=== PATIENT | male | born 1955 | race African-American/Black ===

== ENCOUNTER 2022-12-06 19:30 | Inpatient (IN) | payer MEDICARE, MEDICAID ==
[~2022-12-06] VITALS: Ht 175.3 cm; Wt 80.3 kg
[~2022-12-06 19:30] MED LIST: ABAC1TAB14 PO
[2022-12-06 20:00] VITALS: BP 120/68; PULSE 84; RESP 18; TEMP 97
[2022-12-06] MEDS ORDERED: IPRATROPIUM/ALBUTEROL 0.5-3(2.5)MG/3ML NEB HHN PRN (21:30)
[2022-12-06] MEDS ORDERED: ONDANSETRON HCL 4MG TABLET PO PRN (21:30)
[2022-12-06] MEDS ORDERED: CLONIDINE 0.1MG TABLET PO PRN (21:30)
[2022-12-06] MEDS ORDERED: ACETAMINOPHEN WITH CODEINE 300/30MG TABLET PO PRN (22:00)
[2022-12-07 07:04] LABS: BASOPHILS % 0.5 % (0.0-2.0); EOSINOPHILS % 5.7 % (0.0-5.0); HEMATOCRIT. 44.1 % (42.0-52.0); HEMOGLOBIN. 14.9 g/dL (14.0-18.0); LYMPHOCYTES % 22.8 % (20.0-50.0); MEAN CORPUSCULAR HEMOGLOBIN 27.3 pg (28.0-32.0); MEAN CORPUSCULAR HGB CONC 33.9 g/dL (31.0-37.0); MEAN CORPUSCULAR VOLUME 80.5 fL (80.0-94.0); MONOCYTES % 11.1 % (2.0-8.0); NEUTROPHILS % 59.9 % (40.0-76.0); PLATELET 221 x1000/uL (130-400); RED BLOOD CELL COUNT 5.48 mill/uL (4.7-6.1); RED CELL DISTRIBUTION WIDTH 13.6 % (11.6-14.6); WHITE BLOOD COUNT 4.4 x1000/uL (4.5-11.0)
[2022-12-07 08:00] VITALS: BP 143/95; PULSE 96; RESP 20; TEMP 97.9
[2022-12-07 08:59] LABS: CHLORIDE 105 mEq/L (98-107); INDEX HEMOLYSI 1 (1-3); INDEX ICTERIC 1 (1-4); INDEX LIPEMIC 1 (1-3); POTASSIUM 3.7 mEq/L (3.5-5.1); SODIUM 136 mEq/L (136-145)
[2022-12-07] MEDS: BIKTARVY PO SCH (09:00)
[2022-12-07] MEDS: HYDROCHLOROTHIAZIDE 12.5MG CAPSULE PO SCH (09:00)
[2022-12-07 09:11] LABS: ALANINE AMINOTRANSFERASE 26 IU/L (13-61); ALBUMIN 3.4 g/dL (3.4-5.0); ASPARTATE AMINOTRANSFERASE 22 IU/L (15-37); BILIRUBIN TOTAL 0.5 mg/dL (0.1-1.0); CALCIUM 8.8 mg/dL (8.5-10.1); CARBON DIOXIDE 27 mEq/L (21-32); CREATININE 1.2 mg/dL (0.6-1.3); GLUCOSE 102 mg/dL (70-105); PROTEIN TOTAL 8.8 g/dL (6.0-8.3); UREA NITROGEN BLOOD 19 mg/dL (7-21)
[2022-12-07] MEDS: LOSARTAN 50 MG TABLET PO SCH (09:48)
[2022-12-07] MEDS: CLOPIDOGREL 75MG TABLET PO SCH (09:48)
[2022-12-07] MEDS: ASPIRIN 81MG TABLET PO SCH (09:49)
[2022-12-07] MEDS: LABETALOL HCL 100MG TABLET PO SCH ×2 (09:49→21:00)
[2022-12-07] MEDS: ENOXAPARIN 40MG/0.4ML SYR SUBCUT SCH (09:50)
[2022-12-07] MEDS ORDERED: [UNRECOGNIZED DRUG - OTHER] XX SCH (10:00)
[2022-12-07] MEDS ORDERED: NALOXONE HCL 0.4MG/ML VIAL IV PRN (10:00)
[2022-12-07] MEDS ORDERED: [UNRECOGNIZED DRUG - OTHER] PO (10:02)
[2022-12-07] MEDS ORDERED: HYDR12.54 PO (10:02)
[2022-12-07] MEDS ORDERED: LOSA50TA41 PO (10:02)
[2022-12-07] MEDS ORDERED: SULF1TAB44 PO (10:02)
[2022-12-07] MEDS ORDERED: LABE100T9 PO (10:02)
[2022-12-07] MEDS ORDERED: FINA5TAB11 PO (10:02)
[2022-12-07] MEDS ORDERED: DUTA1CPM4 PO (10:02)
[2022-12-07] MEDS ORDERED: ALFU10TA9 PO (10:02)
[2022-12-07] MEDS ORDERED: AZITHROMYCIN 500 MG TABLET PO SCH (11:15)
[2022-12-07] MEDS: SULFAMETHOXAZOLE/TRIMETHOPRIM 800/160MG TABLET PO SCH ×2 (11:20→21:00)
[2022-12-07 12:00] VITALS: BP 141/98; PULSE 78; RESP 20; TEMP 96.1
[2022-12-07] MEDS: DOCUSATE SODIUM 100MG CAPSULE PO SCH ×2 (16:00→17:00)
[2022-12-07] MEDS: SERTRALINE HCL 50MG TABLET PO SCH (16:00)
[2022-12-07] MEDS ORDERED: AZITHROMYCIN 600 MG TABLET PO NR (20:00)
[2022-12-07] MEDS: FAMOTIDINE 20MG TABLET PO SCH (21:00)
[2022-12-07] MEDS: ATORVASTATIN CALCIUM 40MG TABLET PO SCH (21:00)
[2022-12-08] MEDS ORDERED: *PATIENT'S OWN MEDICATION STORAGE XX SCH (09:00)
[2022-12-08] MEDS: CLOPIDOGREL 75MG TABLET PO SCH (09:37)
[2022-12-08] MEDS: DOCUSATE SODIUM 100MG CAPSULE PO SCH ×2 (09:37→17:00)
[2022-12-08] MEDS: LOSARTAN 50 MG TABLET PO SCH (09:37)
[2022-12-08] MEDS: SULFAMETHOXAZOLE/TRIMETHOPRIM 800/160MG TABLET PO SCH ×2 (09:37→21:00)
[2022-12-08] MEDS: ASPIRIN 81MG TABLET PO SCH (09:38)
[2022-12-08] MEDS: SERTRALINE HCL 50MG TABLET PO SCH (09:38)
[2022-12-08] MEDS: LABETALOL HCL 100MG TABLET PO SCH ×2 (09:38→21:00)
[2022-12-08] MEDS: BIKTARVY PO SCH (09:38)
[2022-12-08] MEDS: HYDROCHLOROTHIAZIDE 12.5MG CAPSULE PO SCH (09:38)
[2022-12-08] MEDS: ENOXAPARIN 40MG/0.4ML SYR SUBCUT SCH (09:40)
[2022-12-08 20:00] VITALS: BP 166/87; PULSE 78; RESP 18; TEMP 97.9
[2022-12-08] MEDS: ATORVASTATIN CALCIUM 40MG TABLET PO SCH (21:00)
[2022-12-08] MEDS: FAMOTIDINE 20MG TABLET PO SCH (21:00)
[2022-12-09 08:00] VITALS: BP 144/84; PULSE 81; RESP 19; TEMP 97.3
[2022-12-09] MEDS: [UNRECOGNIZED DRUG - OTHER] PO SCH ×2 (09:36→17:24)
[2022-12-09] MEDS: BIKTARVY PO SCH (09:37)
[2022-12-09] MEDS: HYDROCHLOROTHIAZIDE 12.5MG CAPSULE PO SCH (09:38)
[2022-12-09] MEDS: DOCUSATE SODIUM 100MG CAPSULE PO SCH ×2 (09:38→17:24)
[2022-12-09] MEDS: SULFAMETHOXAZOLE/TRIMETHOPRIM 800/160MG TABLET PO SCH ×2 (09:38→20:31)
[2022-12-09] MEDS: ASPIRIN 81MG TABLET PO SCH (09:38)
[2022-12-09] MEDS: LOSARTAN 50 MG TABLET PO SCH (09:38)
[2022-12-09] MEDS: LABETALOL HCL 100MG TABLET PO SCH ×2 (09:39→20:31)
[2022-12-09] MEDS: SERTRALINE HCL 50MG TABLET PO SCH (09:39)
[2022-12-09] MEDS: CLOPIDOGREL 75MG TABLET PO SCH (09:39)
[2022-12-09] MEDS: ENOXAPARIN 40MG/0.4ML SYR SUBCUT SCH (09:40)
[2022-12-09 20:00] VITALS: BP 130/80; PULSE 77; RESP 18; TEMP 97.4
[2022-12-09] MEDS: FAMOTIDINE 20MG TABLET PO SCH (20:31)
[2022-12-09] MEDS: ATORVASTATIN CALCIUM 40MG TABLET PO SCH (20:31)
[2022-12-10 08:00] VITALS: BP 129/88; PULSE 80; RESP 19; TEMP 97.4
[2022-12-10] MEDS: LOSARTAN 50 MG TABLET PO SCH (09:00)
[2022-12-10] MEDS: CLOPIDOGREL 75MG TABLET PO SCH (09:00)
[2022-12-10] MEDS: DOCUSATE SODIUM 100MG CAPSULE PO SCH ×2 (09:00→18:07)
[2022-12-10] MEDS: SULFAMETHOXAZOLE/TRIMETHOPRIM 800/160MG TABLET PO SCH ×2 (09:00→21:17)
[2022-12-10] MEDS: HYDROCHLOROTHIAZIDE 12.5MG CAPSULE PO SCH (09:00)
[2022-12-10] MEDS: LABETALOL HCL 100MG TABLET PO SCH ×2 (09:00→21:18)
[2022-12-10] MEDS: ASPIRIN 81MG TABLET PO SCH (09:00)
[2022-12-10] MEDS: [UNRECOGNIZED DRUG - OTHER] PO SCH ×2 (09:00→18:07)
[2022-12-10] MEDS: BIKTARVY PO SCH (09:00)
[2022-12-10] MEDS: ENOXAPARIN 40MG/0.4ML SYR SUBCUT SCH (09:00)
[2022-12-10] MEDS: SERTRALINE HCL 50MG TABLET PO SCH (09:00)
[2022-12-10 19:35] VITALS: PULSE 80; RESP 18
[2022-12-10] MEDS: ATORVASTATIN CALCIUM 40MG TABLET PO SCH (21:17)
[2022-12-10] MEDS: FAMOTIDINE 20MG TABLET PO SCH (21:18)
[2022-12-11 06:11] LABS: BASOPHILS % 0.5 % (0.0-2.0); EOSINOPHILS % 2.7 % (0.0-5.0); HEMATOCRIT. 40.8 % (42.0-52.0); HEMOGLOBIN. 13.8 g/dL (14.0-18.0); LYMPHOCYTES % 20.4 % (20.0-50.0); MEAN CORPUSCULAR HEMOGLOBIN 27.3 pg (28.0-32.0); MEAN CORPUSCULAR HGB CONC 33.7 g/dL (31.0-37.0); MEAN CORPUSCULAR VOLUME 80.9 fL (80.0-94.0); MEAN PLATELET VOLUME 8.7 fl (7.4-10.4); MONOCYTES % 12.6 % (2.0-8.0); NEUTROPHILS % 63.8 % (40.0-76.0); PLATELET 229 x1000/uL (130-400); RED BLOOD CELL COUNT 5.05 mill/uL (4.7-6.1); RED CELL DISTRIBUTION WIDTH 13.7 % (11.6-14.6); WHITE BLOOD COUNT 5.8 x1000/uL (4.5-11.0)
[2022-12-11 08:00] VITALS: BP 146/91; PULSE 74; RESP 20; TEMP 97.1
[2022-12-11] MEDS: DOCUSATE SODIUM 100MG CAPSULE PO SCH ×2 (08:29→18:26)
[2022-12-11] MEDS: CLOPIDOGREL 75MG TABLET PO SCH (08:29)
[2022-12-11] MEDS: ASPIRIN 81MG TABLET PO SCH (08:29)
[2022-12-11] MEDS: SERTRALINE HCL 50MG TABLET PO SCH (08:30)
[2022-12-11] MEDS: LOSARTAN 50 MG TABLET PO SCH (08:30)
[2022-12-11] MEDS: SULFAMETHOXAZOLE/TRIMETHOPRIM 800/160MG TABLET PO SCH ×2 (08:30→22:07)
[2022-12-11] MEDS: HYDROCHLOROTHIAZIDE 12.5MG CAPSULE PO SCH (08:35)
[2022-12-11] MEDS: ENOXAPARIN 40MG/0.4ML SYR SUBCUT SCH (08:35)
[2022-12-11] MEDS: LABETALOL HCL 100MG TABLET PO SCH ×2 (08:35→22:07)
[2022-12-11] MEDS: BIKTARVY PO SCH (08:36)
[2022-12-11] MEDS: [UNRECOGNIZED DRUG - OTHER] PO SCH ×2 (08:36→17:00)
[2022-12-11 08:57] LABS: CHLORIDE 104 mEq/L (98-107); INDEX HEMOLYSI 2 (1-3); INDEX ICTERIC 1 (1-4); INDEX LIPEMIC 1 (1-3); POTASSIUM 4.1 mEq/L (3.5-5.1); SODIUM 136 mEq/L (136-145)
[2022-12-11 09:08] LABS: ALANINE AMINOTRANSFERASE 37 IU/L (13-61); ALBUMIN 3.4 g/dL (3.4-5.0); ASPARTATE AMINOTRANSFERASE 39 IU/L (15-37); BILIRUBIN TOTAL 0.6 mg/dL (0.1-1.0); CALCIUM 8.5 mg/dL (8.5-10.1); CARBON DIOXIDE 25 mEq/L (21-32); CREATININE 1.6 mg/dL (0.6-1.3); GLUCOSE 105 mg/dL (70-105); PROTEIN TOTAL 8.8 g/dL (6.0-8.3); UREA NITROGEN BLOOD 26 mg/dL (7-21)
[2022-12-11] MEDS ORDERED: LACTULOSE 20G/30ML UDC PO NR (13:45)
[2022-12-11 20:00] VITALS: BP 156/102; PULSE 73; RESP 18; TEMP 97.9
[2022-12-11] MEDS ORDERED: LACTULOSE 20G/30ML UDC PO PRN (21:00)
[2022-12-11] MEDS: FAMOTIDINE 20MG TABLET PO SCH (22:07)
[2022-12-11] MEDS: ATORVASTATIN CALCIUM 40MG TABLET PO SCH (22:07)
[2022-12-12 08:05] VITALS: BP 137/65; PULSE 78; RESP 18; TEMP 97.9
[2022-12-12 08:11] LABS: POTASSIUM 3.9 mEq/L (3.5-5.1)
[2022-12-12 08:14] LABS: CALCIUM 8.8 mg/dL (8.5-10.1); CREATININE 1.6 mg/dL (0.6-1.3)
[2022-12-12] MEDS: CLOPIDOGREL 75MG TABLET PO SCH (10:05)
[2022-12-12] MEDS: LABETALOL HCL 100MG TABLET PO SCH ×2 (10:05→21:00)
[2022-12-12] MEDS: HYDROCHLOROTHIAZIDE 12.5MG CAPSULE PO SCH (10:06)
[2022-12-12] MEDS: DOCUSATE SODIUM 100MG CAPSULE PO SCH ×2 (10:06→17:13)
[2022-12-12] MEDS: SERTRALINE HCL 50MG TABLET PO SCH (10:06)
[2022-12-12] MEDS: ASPIRIN 81MG TABLET PO SCH (10:06)
[2022-12-12] MEDS: LOSARTAN 50 MG TABLET PO SCH (10:07)
[2022-12-12] MEDS: [UNRECOGNIZED DRUG - OTHER] PO SCH ×2 (10:08→17:14)
[2022-12-12] MEDS: BIKTARVY PO SCH (10:08)
[2022-12-12] MEDS: SULFAMETHOXAZOLE/TRIMETHOPRIM 800/160MG TABLET PO SCH ×2 (10:09→21:00)
[2022-12-12] MEDS: ENOXAPARIN 40MG/0.4ML SYR SUBCUT SCH (12:19)
[2022-12-12 20:00] VITALS: BP 126/77; PULSE 69; RESP 19; TEMP 98.2
[2022-12-12] MEDS: ATORVASTATIN CALCIUM 40MG TABLET PO SCH (21:00)
[2022-12-12] MEDS: FAMOTIDINE 20MG TABLET PO SCH (21:00)
[2022-12-13 06:46] LABS: BASOPHILS % 0.7 % (0.0-2.0); DIFFERENTIAL COMMENT 0; EOSINOPHILS % 3.4 % (0.0-5.0); HEMATOCRIT. 38.9 % (42.0-52.0); HEMOGLOBIN. 13.2 g/dL (14.0-18.0); LYMPHOCYTES % 21.5 % (20.0-50.0); MEAN CORPUSCULAR HEMOGLOBIN 26.9 pg (28.0-32.0); MEAN CORPUSCULAR HGB CONC 33.9 g/dL (31.0-37.0); MEAN CORPUSCULAR VOLUME 79.3 fL (80.0-94.0); MEAN PLATELET VOLUME 8.9 fl (7.4-10.4); MONOCYTES % 12.1 % (2.0-8.0); NEUTROPHILS % 62.3 % (40.0-76.0); PLATELET 241 x1000/uL (130-400); RED BLOOD CELL COUNT 4.91 mill/uL (4.7-6.1); RED CELL DISTRIBUTION WIDTH 13.7 % (11.6-14.6); WHITE BLOOD COUNT 5.6 x1000/uL (4.5-11.0)
[2022-12-13 08:00] VITALS: BP 119/82; PULSE 87; RESP 18; TEMP 97
[2022-12-13] MEDS: LOSARTAN 50 MG TABLET PO SCH (09:49)
[2022-12-13] MEDS: ASPIRIN 81MG TABLET PO SCH (09:49)
[2022-12-13] MEDS: CLOPIDOGREL 75MG TABLET PO SCH (09:50)
[2022-12-13] MEDS: DOCUSATE SODIUM 100MG CAPSULE PO SCH ×2 (09:50→16:04)
[2022-12-13] MEDS: HYDROCHLOROTHIAZIDE 12.5MG CAPSULE PO SCH (09:51)
[2022-12-13] MEDS: LABETALOL HCL 100MG TABLET PO SCH ×2 (09:51→21:27)
[2022-12-13] MEDS: ENOXAPARIN 40MG/0.4ML SYR SUBCUT SCH (09:52)
[2022-12-13] MEDS: BIKTARVY PO SCH (09:54)
[2022-12-13] MEDS: SERTRALINE HCL 50MG TABLET PO SCH (09:54)
[2022-12-13] MEDS: [UNRECOGNIZED DRUG - OTHER] PO SCH ×2 (09:55→16:04)
[2022-12-13] MEDS: SULFAMETHOXAZOLE/TRIMETHOPRIM 800/160MG TABLET PO SCH ×2 (09:55→21:26)
[2022-12-13 17:07] LABS: *HIV-1 RNA BY PCR 7620 copies/mL (.); *HIV1 RNA LOG10 3.882 (.)
[2022-12-13 20:00] VITALS: BP 151/96; PULSE 75; RESP 18; TEMP 96.9
[2022-12-13] MEDS: ATORVASTATIN CALCIUM 40MG TABLET PO SCH (21:26)
[2022-12-13] MEDS: FAMOTIDINE 20MG TABLET PO SCH (21:26)
[2022-12-14 08:00] VITALS: BP 138/84; PULSE 72; RESP 20; TEMP 97.3
[2022-12-14] MEDS: AZITHROMYCIN 600 MG TABLET PO SCH (08:35)
[2022-12-14] MEDS: SULFAMETHOXAZOLE/TRIMETHOPRIM 800/160MG TABLET PO SCH ×2 (08:35→21:14)
[2022-12-14] MEDS: ASPIRIN 81MG TABLET PO SCH (08:35)
[2022-12-14] MEDS: CLOPIDOGREL 75MG TABLET PO SCH (08:35)
[2022-12-14] MEDS: SERTRALINE HCL 50MG TABLET PO SCH (08:35)
[2022-12-14] MEDS: DOCUSATE SODIUM 100MG CAPSULE PO SCH (08:35)
[2022-12-14] MEDS: LOSARTAN 50 MG TABLET PO SCH (08:36)
[2022-12-14] MEDS: LABETALOL HCL 100MG TABLET PO SCH ×2 (08:36→21:00)
[2022-12-14] MEDS: HYDROCHLOROTHIAZIDE 12.5MG CAPSULE PO SCH (08:36)
[2022-12-14] MEDS: BIKTARVY PO SCH (08:37)
[2022-12-14] MEDS: [UNRECOGNIZED DRUG - OTHER] PO SCH (08:37)
[2022-12-14] MEDS: ENOXAPARIN 40MG/0.4ML SYR SUBCUT SCH (08:37)
[2022-12-14 20:00] VITALS: BP 106/73; PULSE 108; RESP 17; TEMP 96.6
[2022-12-14] MEDS: FAMOTIDINE 20MG TABLET PO SCH (21:13)
[2022-12-14] MEDS: ATORVASTATIN CALCIUM 40MG TABLET PO SCH (21:13)
[2022-12-15 08:00] VITALS: BP 130/80; PULSE 83; RESP 18; TEMP 97.7
[2022-12-15 08:10] LABS: BASOPHILS % 0.5 % (0.0-2.0); EOSINOPHILS % 3.2 % (0.0-5.0); HEMATOCRIT. 39.6 % (42.0-52.0); HEMOGLOBIN. 13.5 g/dL (14.0-18.0); LYMPHOCYTES % 21.6 % (20.0-50.0); MEAN CORPUSCULAR HEMOGLOBIN 27.2 pg (28.0-32.0); MEAN PLATELET VOLUME 8.9 fl (7.4-10.4); MONOCYTES % 12.9 % (2.0-8.0); NEUTROPHILS % 61.8 % (40.0-76.0); PLATELET 252 x1000/uL (130-400); RED BLOOD CELL COUNT 4.96 mill/uL (4.7-6.1); RED CELL DISTRIBUTION WIDTH 13.5 % (11.6-14.6); WHITE BLOOD COUNT 4.9 x1000/uL (4.5-11.0)
[2022-12-15] MEDS: [UNRECOGNIZED DRUG - OTHER] PO SCH ×2 (09:00→16:36)
[2022-12-15] MEDS: BIKTARVY PO SCH (09:00)
[2022-12-15] MEDS: ENOXAPARIN 40MG/0.4ML SYR SUBCUT SCH (09:00)
[2022-12-15] MEDS: LABETALOL HCL 100MG TABLET PO SCH ×2 (10:31→10:34)
[2022-12-15] MEDS: HYDROCHLOROTHIAZIDE 12.5MG CAPSULE PO SCH ×2 (10:31→10:35)
[2022-12-15] MEDS: SERTRALINE HCL 50MG TABLET PO SCH ×2 (10:32→10:33)
[2022-12-15] MEDS: ASPIRIN 81MG TABLET PO SCH ×2 (10:32→10:33)
[2022-12-15] MEDS: DOCUSATE SODIUM 100MG CAPSULE PO SCH ×3 (10:32→16:35)
[2022-12-15] MEDS: CLOPIDOGREL 75MG TABLET PO SCH ×2 (10:32→10:34)
[2022-12-15] MEDS: LOSARTAN 50 MG TABLET PO SCH (10:42)
[2022-12-15] MEDS: SULFAMETHOXAZOLE/TRIMETHOPRIM 800/160MG TABLET PO SCH ×2 (10:55→20:14)
[2022-12-15 20:00] VITALS: BP 117/66; PULSE 83; RESP 18; TEMP 97
[2022-12-15] MEDS: ATORVASTATIN CALCIUM 40MG TABLET PO SCH (20:12)
[2022-12-15] MEDS: FAMOTIDINE 20MG TABLET PO SCH (20:12)
[2022-12-16 08:00] VITALS: BP 127/82; PULSE 81; RESP 19; TEMP 96.7
[2022-12-16] MEDS: DOCUSATE SODIUM 100MG CAPSULE PO SCH ×2 (09:40→18:12)
[2022-12-16] MEDS: ASPIRIN 81MG TABLET PO SCH (09:40)
[2022-12-16] MEDS: ENOXAPARIN 40MG/0.4ML SYR SUBCUT SCH (09:40)
[2022-12-16] MEDS: HYDROCHLOROTHIAZIDE 12.5MG CAPSULE PO SCH (09:41)
[2022-12-16] MEDS: CLOPIDOGREL 75MG TABLET PO SCH (09:41)
[2022-12-16] MEDS: LABETALOL HCL 100MG TABLET PO SCH ×2 (09:42→21:19)
[2022-12-16] MEDS: SULFAMETHOXAZOLE/TRIMETHOPRIM 800/160MG TABLET PO SCH ×2 (09:44→21:19)
[2022-12-16] MEDS: LOSARTAN 50 MG TABLET PO SCH (09:50)
[2022-12-16] MEDS: BIKTARVY PO SCH (09:53)
[2022-12-16] MEDS: [UNRECOGNIZED DRUG - OTHER] PO SCH ×2 (09:54→17:00)
[2022-12-16 20:00] VITALS: BP 128/85; PULSE 86; RESP 17; TEMP 97.9
[2022-12-16] MEDS: ATORVASTATIN CALCIUM 40MG TABLET PO SCH (21:18)
[2022-12-16] MEDS: FAMOTIDINE 20MG TABLET PO SCH (21:18)
[2022-12-17 08:00] VITALS: BP 149/69; PULSE 84; RESP 18; TEMP 95.9
[2022-12-17] MEDS: LOSARTAN 50 MG TABLET PO SCH (09:00)
[2022-12-17] MEDS: DOCUSATE SODIUM 100MG CAPSULE PO SCH (09:00)
[2022-12-17] MEDS: SERTRALINE HCL 50MG TABLET PO SCH (09:00)
[2022-12-17] MEDS: ENOXAPARIN 40MG/0.4ML SYR SUBCUT SCH (09:00)
[2022-12-17] MEDS: [UNRECOGNIZED DRUG - OTHER] PO SCH (09:00)
[2022-12-17] MEDS: LABETALOL HCL 100MG TABLET PO SCH ×2 (09:00→21:28)
[2022-12-17] MEDS: SULFAMETHOXAZOLE/TRIMETHOPRIM 800/160MG TABLET PO SCH ×2 (09:00→21:00)
[2022-12-17] MEDS: BIKTARVY PO SCH (09:00)
[2022-12-17 20:00] VITALS: BP 150/96; PULSE 86; RESP 18; TEMP 95.7
[2022-12-17] MEDS: ATORVASTATIN CALCIUM 40MG TABLET PO SCH (21:28)
[2022-12-17] MEDS: FAMOTIDINE 20MG TABLET PO SCH (21:28)
[2022-12-18 08:00] VITALS: BP 113/72; PULSE 79; RESP 18; TEMP 97.2
[2022-12-18] MEDS: LABETALOL HCL 100MG TABLET PO SCH ×2 (08:59→21:00)
[2022-12-18] MEDS: [UNRECOGNIZED DRUG - OTHER] PO SCH ×2 (08:59→17:41)
[2022-12-18] MEDS: LOSARTAN 50 MG TABLET PO SCH (08:59)
[2022-12-18] MEDS: BIKTARVY PO SCH (08:59)
[2022-12-18] MEDS: HYDROCHLOROTHIAZIDE 12.5MG CAPSULE PO SCH (09:00)
[2022-12-18] MEDS: ENOXAPARIN 40MG/0.4ML SYR SUBCUT SCH (09:00)
[2022-12-18] MEDS: SERTRALINE HCL 50MG TABLET PO SCH (09:00)
[2022-12-18] MEDS: ASPIRIN 81MG TABLET PO SCH (09:00)
[2022-12-18] MEDS: SULFAMETHOXAZOLE/TRIMETHOPRIM 800/160MG TABLET PO SCH ×2 (09:00→21:00)
[2022-12-18] MEDS: DOCUSATE SODIUM 100MG CAPSULE PO SCH ×2 (09:00→17:00)
[2022-12-18] MEDS: CLOPIDOGREL 75MG TABLET PO SCH (09:22)
[2022-12-18 19:16] VITALS: PULSE 79; RESP 18
[2022-12-18 19:40] VITALS: PULSE 79; RESP 18
[2022-12-18 20:00] VITALS: BP 118/64; PULSE 87; RESP 18; TEMP 99.1
[2022-12-18] MEDS: ATORVASTATIN CALCIUM 40MG TABLET PO SCH (22:06)
[2022-12-18] MEDS: FAMOTIDINE 20MG TABLET PO SCH (22:06)
[2022-12-19 07:17] LABS: BASOPHILS % 0.6 % (0.0-2.0); DIFFERENTIAL COMMENT 0; EOSINOPHILS % 3.2 % (0.0-5.0); HEMATOCRIT. 35.6 % (42.0-52.0); LYMPHOCYTES % 16.8 % (20.0-50.0); MEAN CORPUSCULAR HGB CONC 33.6 g/dL (31.0-37.0); MEAN CORPUSCULAR VOLUME 80.2 fL (80.0-94.0); MEAN PLATELET VOLUME 8.6 fl (7.4-10.4); NEUTROPHILS % 67.4 % (40.0-76.0); PLATELET 266 x1000/uL (130-400); RED BLOOD CELL COUNT 4.44 mill/uL (4.7-6.1); RED CELL DISTRIBUTION WIDTH 13.4 % (11.6-14.6); WHITE BLOOD COUNT 5.2 x1000/uL (4.5-11.0)
[2022-12-19 07:51] LABS: CHLORIDE 105 mEq/L (98-107); INDEX HEMOLYSI 1 (1-3); INDEX ICTERIC 1 (1-4); INDEX LIPEMIC 1 (1-3); POTASSIUM 3.7 mEq/L (3.5-5.1); SODIUM 136 mEq/L (136-145)
[2022-12-19 07:59] LABS: CALCIUM 8.4 mg/dL (8.5-10.1); CARBON DIOXIDE 26 mEq/L (21-32); CREATININE 1.3 mg/dL (0.6-1.3); GLUCOSE 104 mg/dL (70-105); UREA NITROGEN BLOOD 33 mg/dL (7-21)
[2022-12-19 08:00] VITALS: BP 102/73; PULSE 82; RESP 18; TEMP 97
[2022-12-19] MEDS: DOCUSATE SODIUM 100MG CAPSULE PO SCH ×2 (09:00→13:52)
[2022-12-19] MEDS: [UNRECOGNIZED DRUG - OTHER] PO SCH ×2 (09:00→17:00)
[2022-12-19] MEDS: LOSARTAN 50 MG TABLET PO SCH (09:00)
[2022-12-19] MEDS: ASPIRIN 81MG TABLET PO SCH (09:00)
[2022-12-19] MEDS: BIKTARVY PO SCH (09:00)
[2022-12-19] MEDS: SERTRALINE HCL 50MG TABLET PO SCH (09:00)
[2022-12-19] MEDS: ENOXAPARIN 40MG/0.4ML SYR SUBCUT SCH (09:00)
[2022-12-19] MEDS: HYDROCHLOROTHIAZIDE 12.5MG CAPSULE PO SCH (09:00)
[2022-12-19] MEDS: SULFAMETHOXAZOLE/TRIMETHOPRIM 800/160MG TABLET PO SCH (09:00)
[2022-12-19] MEDS: CLOPIDOGREL 75MG TABLET PO SCH (09:00)
[2022-12-19] MEDS: LABETALOL HCL 100MG TABLET PO SCH ×2 (09:00→21:29)
[2022-12-19 20:00] VITALS: BP 135/91; PULSE 91; RESP 18; TEMP 97.2
[2022-12-19] MEDS: ATORVASTATIN CALCIUM 40MG TABLET PO SCH (21:27)
[2022-12-19] MEDS: FAMOTIDINE 20MG TABLET PO SCH (21:28)
[2022-12-20 08:00] VITALS: BP 124/81; PULSE 70; RESP 20; TEMP 97.4
[2022-12-20] MEDS: BIKTARVY PO SCH (08:58)
[2022-12-20] MEDS: LOSARTAN 50 MG TABLET PO SCH (08:59)
[2022-12-20] MEDS: [UNRECOGNIZED DRUG - OTHER] PO SCH ×2 (08:59→16:50)
[2022-12-20] MEDS: DOCUSATE SODIUM 100MG CAPSULE PO SCH ×2 (08:59→16:50)
[2022-12-20] MEDS: ENOXAPARIN 40MG/0.4ML SYR SUBCUT SCH (09:01)
[2022-12-20] MEDS: HYDROCHLOROTHIAZIDE 12.5MG CAPSULE PO SCH (09:02)
[2022-12-20] MEDS: CLOPIDOGREL 75MG TABLET PO SCH (09:02)
[2022-12-20] MEDS: LABETALOL HCL 100MG TABLET PO SCH ×2 (09:02→20:46)
[2022-12-20] MEDS: SERTRALINE HCL 50MG TABLET PO SCH (09:02)
[2022-12-20] MEDS: ASPIRIN 81MG TABLET PO SCH (09:02)
[2022-12-20] MEDS: SULFAMETHOXAZOLE/TRIMETHOPRIM 800/160MG TABLET PO SCH (09:07)
[2022-12-20 20:00] VITALS: BP 106/54; PULSE 80; RESP 20; TEMP 96.2
[2022-12-20] MEDS: ATORVASTATIN CALCIUM 40MG TABLET PO SCH (20:48)
[2022-12-20] MEDS: FAMOTIDINE 20MG TABLET PO SCH (20:49)
[2022-12-21 08:00] VITALS: BP 115/83; PULSE 87; RESP 20; TEMP 96.6
[2022-12-21] MEDS: LABETALOL HCL 100MG TABLET PO SCH ×3 (09:00→21:23)
[2022-12-21] MEDS: CLOPIDOGREL 75MG TABLET PO SCH ×2 (09:00→09:08)
[2022-12-21] MEDS: DOCUSATE SODIUM 100MG CAPSULE PO SCH ×3 (09:00→16:36)
[2022-12-21] MEDS: HYDROCHLOROTHIAZIDE 12.5MG CAPSULE PO SCH (09:08)
[2022-12-21] MEDS: LOSARTAN 50 MG TABLET PO SCH (09:08)
[2022-12-21] MEDS: AZITHROMYCIN 600 MG TABLET PO SCH (09:08)
[2022-12-21] MEDS: SERTRALINE HCL 50MG TABLET PO SCH (09:08)
[2022-12-21] MEDS: BIKTARVY PO SCH (09:09)
[2022-12-21] MEDS: ASPIRIN 81MG TABLET PO SCH (09:09)
[2022-12-21] MEDS: SULFAMETHOXAZOLE/TRIMETHOPRIM 800/160MG TABLET PO SCH (09:09)
[2022-12-21] MEDS: [UNRECOGNIZED DRUG - OTHER] PO SCH ×2 (09:10→16:36)
[2022-12-21] MEDS: ENOXAPARIN 40MG/0.4ML SYR SUBCUT SCH (09:11)
[2022-12-21 20:00] VITALS: BP 125/71; PULSE 75; RESP 18; TEMP 96.3
[2022-12-21] MEDS: ATORVASTATIN CALCIUM 40MG TABLET PO SCH (21:22)
[2022-12-21] MEDS: FAMOTIDINE 20MG TABLET PO SCH (21:22)
[2022-12-22 08:00] VITALS: BP 124/86; PULSE 80; RESP 20; TEMP 97.6
[2022-12-22] MEDS: ASPIRIN 81MG TABLET PO SCH (08:24)
[2022-12-22] MEDS: HYDROCHLOROTHIAZIDE 12.5MG CAPSULE PO SCH (08:24)
[2022-12-22] MEDS: DOCUSATE SODIUM 100MG CAPSULE PO SCH (08:24)
[2022-12-22] MEDS: LOSARTAN 50 MG TABLET PO SCH (08:25)
[2022-12-22] MEDS: [UNRECOGNIZED DRUG - OTHER] PO SCH (08:25)
[2022-12-22] MEDS: LABETALOL HCL 100MG TABLET PO SCH (08:25)
[2022-12-22] MEDS: BIKTARVY PO SCH (08:26)
[2022-12-22] MEDS: SULFAMETHOXAZOLE/TRIMETHOPRIM 800/160MG TABLET PO SCH (08:42)
[2022-12-22] MEDS: CLOPIDOGREL 75MG TABLET PO SCH (08:42)
[2022-12-22] MEDS: SERTRALINE HCL 50MG TABLET PO SCH (08:42)
[2022-12-22] MEDS: ENOXAPARIN 40MG/0.4ML SYR SUBCUT SCH (08:42)
[2022-12-22 09:04] VITALS: BP 124/86; PULSE 80; TEMP 97.6; O2SAT 98
== END 2022-12-22 13:40 | DRG 65 ==
PROVIDERS: ADMIT Psychiatry & Neurology Neurology; ATTEND Internal Medicine
DX: I63.81 Other cerebral infarction due to occlusion or stenosis of small artery (principal); B20 Human immunodeficiency virus [HIV] disease; E44.1 Mild protein-calorie malnutrition; I69.351 Hemiplegia and hemiparesis following cerebral infarction affecting right dominant side; G93.40 Encephalopathy, unspecified; F33.1 Major depressive disorder, recurrent, moderate; D63.8 Anemia in other chronic diseases classified elsewhere; I10 Essential (primary) hypertension; R73.9 Hyperglycemia, unspecified; F41.9 Anxiety disorder, unspecified; F43.21 Adjustment disorder with depressed mood; F41.1 Generalized anxiety disorder; R73.03 Prediabetes; R13.10 Dysphagia, unspecified; R06.00 Dyspnea, unspecified; R47.1 Dysarthria and anarthria; I70.8 Atherosclerosis of other arteries; R53.1 Weakness; R29.810 Facial weakness; R47.81 Slurred speech; N40.1 Benign prostatic hyperplasia with lower urinary tract symptoms; R33.8 Other retention of urine; Z79.899 Other long term (current) drug therapy; Z97.0 Presence of artificial eye; Z91.81 History of falling; Z91.148 Patient's other noncompliance with medication regimen for other reason; Z90.79 Acquired absence of other genital organ(s)
CPT/HCPCS: 36415; 74230; 80048; 80053; 85025; 87426; 87536; 92523; 92610; 92611; 93970; 94640; 97110; 97112; 97116; 97162; 97166; 97530; 97535; J1650

== ENCOUNTER 2023-01-20 19:49 | Emergency (ER) | payer MEDICARE, MEDICAID ==
[~2023-01-20] VITALS: Ht 177.8 cm; Wt 73.0 kg
[~2023-01-20 19:49] MED LIST changes: +ALFU10TA9 PO; +DUTA1CPM4 PO; +FINA5TAB11 PO; +HYDR12.54 PO; +LABE100T9 PO; +LOSA50TA41 PO; +SULF1TAB44 PO; +[UNRECOGNIZED DRUG - OTHER] PO
[2023-01-20 20:47] VITALS: BP 155/96; PULSE 89; RESP 18; TEMP 98.3; O2SAT 98
[2023-01-20] MEDS ORDERED: TETRACAINE 0.5% OPHTH DROPS 4ML RIGHTEYE ONE (21:15)
[2023-01-20] MEDS ORDERED: BALANCED SALT IRRIG SOLN 15ML IR ONE (21:15)
[2023-01-20] MEDS ORDERED: FLUORESCEIN SODIUM 1MG/STRIP RIGHTEYE ONE (21:15)
== END 2023-01-20 23:52 | disposition left against medical advice (07) ==
LOC: ER 19:49
DX: H10.31 Unspecified acute conjunctivitis, right eye (principal)
CPT/HCPCS: 99281